=== PATIENT | female | born 1985 | race Asian ===

== ENCOUNTER 2020-10-05 11:39 | Emergency (ER) | payer OTHER ==
--- OUTSIDE RECORDS SUMMARY | 2020-10-05 11:42 | XMS REPORT | Continuity of Care Document ---
:1985 Author Organization [facility] t Address [address] [place] [address] Care Team Providers Name Role Phone Unavailable Unavailable Unavailable Problems This patient has no known problems. Allergies, Adverse Reactions, Alerts This patient has no known allergies or adverse reactions. Medications Ordered Filled Start Stop Current Ordering Indication Dosage Frequency Signature Comments Components Source Medication Medication Date Date Medication? Clinician (SIG) Name Name Blisovi FE Blisovi FE Yes Na Snider TAKE [address] [facility] 04/05 04/05 [facility] Procedures This patient has no known procedures. Encounters Start End Encounter Admission Attending Care Care Encounter Source Date/Time Date/Time Type Type Clinicians Facility Department ID 2020-05-05 2020-05-05 [facility] [id number] [facility] 2020-02-26 2020-02-26 [facility] [id number] [facility] 2020-02-17 2020-02-17 [facility] [id number] [facility] 2019-06-17 2019-06-17 [facility] [id number] [facility] 09:16[facility]00 09:16:00 [facility] Medicine Outpati ent Clinics 2019-02-16 2019-02-16 [facility] [id number] [facility] 14:40:00 14:40:00 [facility] Outpat[facility] ent Clinics 2019-02-04 2019-02-04 [facility] [id number] [facility] 16:24:00 16:24:00 [facility] Medicine Outpati ent Clinics 2019-02-04 2019-02-04 [facility] [id number] [facility] 16:19:00 16:19:00 [facility] Outpat[facility] ent Clinics 2018-02-27 2018-02-27 [facility] [id number] [facility] 23:53:00 23:53:00 [facility] Medicine Outpati ent Clinics 2018-02-13 2018-02-13 Outpatient [facility] [id number] [facility]00 [facility] ent Clinics Results This patient has no known results.
[2020-10-05] MEDS ORDERED: METOPROLOL TAR 50 MG TAB ONE (12:35)
[2020-10-05] MEDS ORDERED: METOPROLOL TARTRATE 5 MG/5 ML INJ IV ONE (12:35)
[2020-10-05] MEDS ORDERED: NA CHLORIDE 0.9% 1,000 ML ONE (12:35)
--- NOTE | 2020-10-05 13:09 | RAD REPORT ---
EXAM DESCRIPTION: Vanessa Single View10/05/2020 12:59 pm CLINICAL HISTORY: Cough COMPARISON: none FINDINGS: The lungs appear clear of acute infiltrate. The heart is normal size IMPRESSION: No acute abnormalities displayed
[2020-10-05 13:18] LABS: Protime INR 0.94
[2020-10-05] MEDS ORDERED: carvediloL 6.25 MG TAB ONE (13:18)
[2020-10-05 13:28] LABS: Absolute Lymphocytes (CBC) 2.9 K/uL (0.7-4.9); Basophils % 0.7 % (0-1.3); Hematocrit 47.7 % (36.0-45.0); Lymphocytes % 25.9 % (15.3-44.8); MPV 7.6 fL (7.6-11.3); RBC Red Blood Cell Count 5.33 M/uL (3.86-4.86)
--- NOTE | 2020-10-05 16:47 | ER ---
Nurse's Notes [facility] Name: Vandana Garcia Age: 35 yrs Sex: Female : 1985 Arrival Date: 10/05/2020 Time: 11:42 Bed 17 Private MD: Diagnosis: Supraventricular tachycardia-hx WPW Presentation: 10/05 12:07 Chief complaint: HR 160-190, chest tightness, and SOB since yesterday. Hx of WPW. hb Coronavirus screen: At this time, the client does not indicate any symptoms associated with coronavirus-19. Ebola Screen: No symptoms or risks identified at this time. Risk Assessment: Do you want to hurt yourself or someone else? Patient reports no desire to harm self or others. Onset of symptoms was October 04, 2020. 12:07 Method Of Arrival: Wheelchair hb 12:07 Acuity: JOSS 2 hb 12:39 Initial Sepsis Screen: Does the patient meet any 2 criteria? No. Patient's initial ap3 sepsis screen is negative. Does the patient have a suspected source of infection? No. Patient's initial sepsis screen is negative. Historical: - Allergies: 12:08 No Known Allergies; hb - Home Meds: 12:08 rosuvastatin oral [Active]; hb 12:08 Oral BC [Active]; hb - PMHx: 12:08 WPW; hb - Immunization history:: Adult Immunizations up to date. - Social history:: Smoking status: Patient denies any tobacco usage or history of. - Family history:: not pertinent. Screenin:38 Abuse screen: Denies threats or abuse. Nutritional screening: No deficits noted. ap3 Tuberculosis screening: No symptoms or risk factors identified. Fall Risk None identified. Assessment: 12:37 General: Appears in no apparent distress. Behavior is calm, cooperative, appropriate ap3 for age. Pain: Complains of pain in chest Pain does not radiate. Pain currently is 6 out of 10 on a pain scale. Quality of pain is described as "like my heart is being squeezed" Pain began 1 day ago. Neuro: Level of Consciousness is awake, alert, obeys commands, Oriented to person, place, time, situation, Appropriate for age. Cardiovascular: Reports chest pain, Denies Capillary refill < 3 seconds Patient's skin is warm and dry. Rhythm is SVT. Respiratory: Airway is patent Respiratory effort is even, unlabored, Respiratory pattern is regular, symmetrical. GI: No signs and/or symptoms were reported involving the gastrointestinal system. : No signs and/or symptoms were reported regarding the genitourinary system. 13:33 Reassessment: Patient and/or family updated on plan of care and expected duration. Pain ap3 level reassessed. Patient is alert, oriented x 3, equal unlabored respirations, skin warm/dry/pink. Vital Signs: 12:07 BP 135 / 92; Pulse 165; Resp 20; Temp 98; Pulse Ox 100% ; Pain 8/10; hb 12:45 BP 112 / 71; Pulse 98; Resp 18; Pulse Ox 95% on R/A; Pain 6/10; ap3 13:33 BP 114 / 84; Pulse 97; Resp 16; Pulse Ox 98% on R/A; ap3 14:26 BP 92 / 70; Pulse 95; ap3 14:28 BP 92 / 70; Pulse 86; Resp 17; Pulse Ox 99% on R/A; ap3 15:10 BP 103 / 68; Pulse 83; Resp 18; Pulse Ox 97% on R/A; ap3 16:19 BP 118 / 69; Pulse 91; Resp 16; Pulse Ox 99% on R/A; ap3 ED Course: 11:42 Patient arrived in ED. rg4 12:06 Chuckie Collier MD is Attending Physician. cuco 12:08 Triage completed. hb 12:08 Arm band placed on. hb 12:10 Opal Thomas, RN is Primary Nurse. ap3 12:20 Inserted saline lock: 20 gauge in left antecubital area, using aseptic technique. Blood ap3 collected. 12:28 Patient has correct armband on for positive identification. Placed in gown. Bed in low mh5 position. Call light in reach. Side rails up X 1. Adult w/ patient. Warm blanket given. ob/gyn physician on. Pulse ox on. NIBP on. 12:28 EKG done, by ED staff, reviewed by Chuckie Collier MD. mh5 12:39 Patient maintains SpO2 saturation greater than 95% on room air. ap3 12:59 XRAY Chest (1 view) In Process Unspecified. EDMS 16:46 Thomas Butler MD is Referral Physician. cuco Administered Medications: 12:33 CANCELLED (Duplicate Order): Lopressor (metoprolol TARTRATE) 50 mg PO once cuco 12:33 CANCELLED (Duplicate Order): Adenosine 6 mg IVP once cuco 12:33 CANCELLED (Duplicate Order): Adenocard (adenosine) 12 mg IVP once cuco 12:34 CANCELLED (Duplicate Order): Lopressor (metoprolol) 2.5 mg IVP once; Hold for SBP <100 cuco or HR <60. 12:34 CANCELLED (Duplicate Order): Lopressor (metoprolol) 2.5 mg IVP once; Hold for SBP <100 cuco or HR <60. 12:35 Drug: NS 0.9% 1000 ml Route: IV; Rate: 1 bolus; Site: left antecubital; ap3 12:55 Drug: Coreg (carvedilol) 6.25 mg Route: PO; ap3 14:26 Follow up: BP 92 / 70; Pulse 95 bpm; Response: No adverse reaction ap3 Outcome: 16:46 Discharge ordered by . cuco 17:20 Patient left the ED. ss Signatures: Dispatcher [employer] EDMS Chuckie Collier MD MD cha Smirch, Shelby, RN RN ss Lis Moody RN RN hb Garcia, Rubi rg4 Martinez, Maria [facility] Opal Thomas RN RN ap3
--- NOTE | 2020-10-05 16:47 | EDPHYS ---
Physician Documentation [facility] Name: Vandana Garcia Age: 35 yrs Sex: Female : 1985 Arrival Date: 10/05/2020 Time: 11:42 Bed 17 Private MD: CYN Physician Chuckie Collier HPI: 10/05 12:23 This 35 yrs old Female presents to ER via Wheelchair with complaints of Chest cuco Pain, Palpitations. 12:23 The patient or guardian reports chest pain that is located primarily in the. The cuco patient or guardian reports chest pain that is located primarily in the anterior chest wall, bilaterally. The pain does not radiate. Associated signs and symptoms: The patient has no apparent associated signs or symptoms. The chest pain is described as aching. Duration: The patient or guardian reports a single episode, that is still ongoing. Modifying factors: The symptoms are alleviated by nothing. the symptoms are aggravated by nothing. Severity of pain: At its worst the pain was mild in the emergency department the pain is unchanged. The patient has experienced similar episodes in the past, several times. Historical: - Allergies: 12:08 No Known Allergies; hb - Home Meds: 12:08 rosuvastatin oral [Active]; hb 12:08 Oral BC [Active]; hb - PMHx: 12:08 WPW; hb - Immunization history:: Adult Immunizations up to date. - Social history:: Smoking status: Patient denies any tobacco usage or history of. - Family history:: not pertinent. ROS: 12:23 Constitutional: Negative for fever, chills, and weight loss, Eyes: Negative for injury, cuco pain, redness, and discharge, ENT: Negative for injury, pain, and discharge, Neck: Negative for injury, pain, and swelling, Respiratory: Negative for shortness of breath, cough, wheezing, and pleuritic chest pain, Abdomen/GI: Negative for abdominal pain, nausea, vomiting, diarrhea, and constipation, Back: Negative for injury and pain, : Negative for injury, bleeding, discharge, and swelling, MS/Extremity: Negative for injury and deformity, Skin: Negative for injury, rash, and discoloration, Neuro: Negative for headache, weakness, numbness, tingling, and seizure, Psych: Negative for depression, anxiety, suicide ideation, homicidal ideation, and hallucinations, Allergy/Immunology: Negative for hives, rash, and allergies, Endocrine: Negative for neck swelling, polydipsia, polyuria, polyphagia, and marked weight changes, Hematologic/Lymphatic: Negative for swollen nodes, abnormal bleeding, and unusual bruising. 12:23 Cardiovascular: Positive for chest pain, palpitations. Exam: 12:23 Constitutional: This is a well developed, well nourished patient who is awake, alert, cuco and in no acute distress. Head/Face: Normocephalic, atraumatic. Eyes: Pupils equal round and reactive to light, extra-ocular motions intact. Lids and lashes normal. Conjunctiva and sclera are non-icteric and not injected. Cornea within normal limits. Periorbital areas with no swelling, redness, or edema. ENT: Nares patent. No nasal discharge, no septal abnormalities noted. Tympanic membranes are normal and external auditory canals are clear. Oropharynx with no redness, swelling, or masses, exudates, or evidence of obstruction, uvula midline. Mucous membranes moist. Neck: Trachea midline, no thyromegaly or masses palpated, and no cervical lymphadenopathy. Supple, full range of motion without nuchal rigidity, or vertebral point tenderness. No Meningismus. Chest/axilla: Normal chest wall appearance and motion. Nontender with no deformity. No lesions are appreciated. Respiratory: Lungs have equal breath sounds bilaterally, clear to auscultation and percussion. No rales, rhonchi or wheezes noted. No increased work of breathing, no retractions or nasal flaring. Abdomen/GI: Soft, non-tender, with normal bowel sounds. No distension or tympany. No guarding or rebound. No evidence of tenderness throughout. Back: No spinal tenderness. No costovertebral tenderness. Full range of motion. Skin: Warm, dry with normal turgor. Normal color with no rashes, no lesions, and no evidence of cellulitis. MS/ Extremity: Pulses equal, no cyanosis. Neurovascular intact. Full, normal range of motion. Neuro: Awake and alert, GCS 15, oriented to person, place, time, and situation. Cranial nerves II-XII grossly intact. Motor strength 5/5 in all extremities. Sensory grossly intact. Cerebellar exam normal. Normal gait. Psych: Awake, alert, with orientation to person, place and time. Behavior, mood, and affect are within normal limits. 12:23 ECG was reviewed by the Attending Physician. 15:21 ECG was reviewed by the Attending Physician. [facility] Vital Signs: 12:07 BP 135 / 92; Pulse 165; Resp 20; Temp 98; Pulse Ox 100% ; Pain 8/10; hb 12:45 BP 112 / 71; Pulse 98; Resp 18; Pulse Ox 95% on R/A; Pain 6/10; ap3 13:33 BP 114 / 84; Pulse 97; Resp 16; Pulse Ox 98% on R/A; ap3 14:26 BP 92 / 70; Pulse 95; ap3 14:28 BP 92 / 70; Pulse 86; Resp 17; Pulse Ox 99% on R/A; ap3 15:10 BP 103 / 68; Pulse 83; Resp 18; Pulse Ox 97% on R/A; ap3 16:19 BP 118 / 69; Pulse 91; Resp 16; Pulse Ox 99% on R/A; ap3 MDM: 12:06 Patient medically screened. cuco 12:27 Differential diagnosis: anxiety, coronary artery disease chest wall pain, myocarditis, cuco pancreatitis, pleurisy, stable angina, thoracic aortic disection. HEART Score: Total Score = 0. The patient's deep vein thrombosis risk score was calculated as follows: Total Score: 0. This patient was found to be at low risk for a deep vein thrombosis by using the Well's assessment criteria. The patient's pulmonary embolism risk score was calculated as follows: Total Score: 0-2 points. This patient was found to be at low risk for a pulmonary embolism by using the Well's assessment criteria. FRED Risk Score: TOTAL SCORE = 0. Data reviewed: vital signs, nurses notes, lab test result(s), EKG, radiologic studies, plain films. Data interpreted: bus monitor: rate is 165 beats/min, rhythm is regular, Pulse oximetry: on room air is 165 %. Test interpretation: by ED physician or midlevel provider: ECG, plain radiologic studies. Counseling: I had a detailed discussion with the patient and/or guardian regarding: the historical points, exam findings, and any diagnostic results supporting the discharge/admit diagnosis, lab results, radiology results. 10/05 12:08 Order name: Basic Metabolic Panel [facility] 10/05 12:08 Order name: CBC with Diff [facility] 10/05 12:08 Order name: LFT's [facility] 10/05 12:08 Order name: Magnesium [facility] 10/05 12:08 Order name: NT PRO-BNP [facility] 10/05 12:08 Order name: PT-INR; Complete Time: 13:41 [facility] 10/05 12:08 Order name: Troponin (emerg Dept Use Only) [facility] 10/05 12:08 Order name: XRAY Chest (1 view); Complete Time: 13:41 [facility] 10/05 12:08 Order name: TSH [facility] 10/05 12:09 Order name: Basic Metabolic Panel EDMN 10/05 12:09 Order name: CBC with Automated Diff; Complete Time: 13:41 EDMS 10/05 12:08 Order name: Cardiac monitoring; Complete Time: 12:28 [facility] 10/05 12:08 Order name: EKG - Nurse/Tech; Complete Time: 12:28 [facility] 10/05 12:08 Order name: IV Saline Lock; Complete Time: 12:35 [facility] 10/05 12:08 Order name: Labs collected and sent; Complete Time: 12:35 [facility] 10/05 12:08 Order name: O2 Per Protocol; Complete Time: 12:35 [facility] 10/05 12:08 Order name: O2 Sat Monitoring; Complete Time: 12:35 [facility] 10/05 13:51 Order name: EKG - Nurse/Tech; Complete Time: 14:26 em1 EC:23 Rate is 145 beats/min. Rhythm is regular. QRS [place] is Normal. [place] interval is normal. cuco QRS interval is normal. QT interval is normal. No Q waves. T waves are Normal. No ST changes noted. Clinical impression: WPW. Interpreted by me. Reviewed by me. 15:21 Rate is 88 beats/min. Rhythm is regular. QRS [place] is Normal. [place] interval is normal. QRS cuco interval is normal. QT interval is normal. No Q waves. T waves are Normal. No ST changes noted. Clinical impression: NSR w/ Non-specific ST/T Changes and No evidence of ischemia. Interpreted by me. Reviewed by me. Administered Medications: 12:33 CANCELLED (Duplicate Order): Lopressor (metoprolol TARTRATE) 50 mg PO once cuco 12:33 CANCELLED (Duplicate Order): Adenosine 6 mg IVP once cuco 12:33 CANCELLED (Duplicate Order): Adenocard (adenosine) 12 mg IVP once cuco 12:34 CANCELLED (Duplicate Order): Lopressor (metoprolol) 2.5 mg IVP once; Hold for SBP <100 cuco or HR <60. 12:34 CANCELLED (Duplicate Order): Lopressor (metoprolol) 2.5 mg IVP once; Hold for SBP <100 cuco or HR <60. 12:35 Drug: NS 0.9% 1000 ml Route: IV; Rate: 1 bolus; Site: left antecubital; ap3 12:55 Drug: Coreg (carvedilol) 6.25 mg Route: PO; ap3 14:26 Follow up: BP 92 / 70; Pulse 95 bpm; Response: No adverse reaction ap3 Disposition Summary: 10/05/20 16:46 Discharge Ordered Location: Home cuco Problem: new cuco Symptoms: have improved cuco Condition: Stable cuco Diagnosis - Supraventricular tachycardia - hx WPW cuco Followup: cuco - With: Private Physician - When: 2 - 3 days - Reason: Recheck today's complaints, Continuance of care, Re-evaluation by your physician Followup: cuco - With: - When: 2 - 3 days - Reason: Recheck today's complaints, Continuance of care, Re-evaluation by your physician Discharge Instructions: - Supraventricular Tachycardia, Adult cuco - Supraventricular Tachycardia, Adult, [id number]-yr-[id number] cuco - Discharge Summary Sheet ap3 - Tbfzd-[id number]-[id number] Syndrome cuco Forms: - Medication Reconciliation Form cuco - SBAR form ap3 - Thank You Letter cuco - Antibiotic Education cuco - Prescription Opioid Use cuco Prescriptions: - Coreg 3.125 mg Oral Tablet - take 1 tablet by ORAL route every 12 hours with food; 30 tablet; Refills: 0, cuco Product Selection Permitted Signatures: Dispatcher [employer] EDMN Chuckie Collier MD MD cha Martinez, Eric em1 Lis Moody RN RN Opal Earl RN RN ap3 Corrections: (The following items were deleted from the chart) 12:33 12:08 Lopressor (metoprolol TARTRATE) 50 mg PO once ordered. [facility] : 12:31 Adenosine 6 mg IVP once ordered. [facility] : 12:31 Adenocard (adenosine) 12 mg IVP once ordered. [facility] 12:34 12:08 Lopressor (metoprolol) 2.5 mg IVP once; Hold for SBP <100 or HR <60. ordered. cuco [place] 12:34 12:08 Lopressor (metoprolol) 2.5 mg IVP once; Hold for SBP <100 or HR <60. ordered. cuco [place]
[2020-10-06 11:18] LABS: Potassium 3.9
[2020-10-06 11:20] LABS: Bilirubin Total 0.4
[2020-10-06 11:22] LABS: Albumin 4.8; Protein, Total 8.6; Troponin (Emerg Dept Use Only) 0.024
[2020-10-06 11:23] LABS: Magnesium 2.3
[2020-10-06 11:24] LABS: Thyroid Stimulating Hormone 2.45
--- NOTE | 2020-10-10 12:43 | EKG ---
Test Date: 2020-10-05 Test Time: 14:23:51 Help Desk Consultant: ALP MEASUREMENT RESULTS: Intervals: Rate: 88 HI: 134 QRSD: 82 QT: 356 QTc: 430 [place]: P: 62 HI: 134 QRS: 81 T: 22 INTERPRETIVE STATEMENTS: Sinus rhythm with frequent premature ventricular complexes Otherwise normal ECG Compared to ECG 10/05/2020 12:22:51 Ventricular premature complex(es) now present Supraventricular tachycardia no longer present ST (T wave) deviation no longer present Electronically Signed On 10-10-20 12:38:09 CDT by Thomas Butler
== END 2020-10-05 17:20 | disposition home or self-care (01) ==
LOC: ER 11:39
DX: I47.1 Supraventricular tachycardia (principal); I45.6 Pre-excitation syndrome
CPT/HCPCS: 85025; 80048; 36415; 83735; 85610; 80076; 84443; 84484; 83880; 71045; 99285; J7030; 93005